=== PATIENT | female | born 1990 | race Two or more races ===

== ENCOUNTER 2024-06-26 09:46 | Outpatient (AMB) | payer OTHER, SELFPAY ==
[2024-06-26 10:05] VITALS: BP 104/68; PULSE 73; RESP 14; TEMP 36.6; O2SAT 98; BMI 23.3
--- NOTE | 2024-06-26 10:05 | OBCLNT_ITS ---
Vital Signs 06/26/24 10:05 Height 1.66 m Height Method Stated Weight 64.637 kg Weight Measurement Method Standing Scale BMI 23.3 BP 104/68 Blood Pressure Source Automatic Cuff Blood Pressure Location Right Upper Arm Position Sitting Respiration 14 Pulse 73 Pulse Source Monitor Temp 97.9 F Temp Source Oral Pulse Oximetry (%) 98 Oxygen Delivery Method Room Air Allergies/Home Meds Allergies & Medications Allergies No Known Allergies Allergy (Verified 06/26/24 10:06) Medication Reconciliation No Known Home Medications 06/26/24 [History Confirmed 06/26/24] Intake Visit Data Collection New Patient or Established: New Patient (never been to [facility]) Reason for Visit:: INITIAL CARE Seen by Clinical Staff ONLY (RN/MA): No 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 1. Little interest or pleasure in doing things: not at all 2. Feeling down, depressed, or hopeless: not at all Total score: 0 PHQ-9 3. Trouble falling or staying asleep, or sleeping too much: Not at all 4. Feeling tired or having little energy: Not at all 5. Poor appetite or overeating: Not at all 6. Feeling bad about yourself - or that you are a failure or have let yourself or your family down: Not at all 7. Trouble concentrating on things, such as reading the newspaper or watching television: Not at all 8. Moving or speaking so slowly that other people could have noticed? - Or the opposite - being so fidgety or restless that you have been moving around a lot more than usual: not at all 9. Thoughts that you would be better off or of hurting yourself in some way: Not at all Total score: 0 Source: Developed by Drs. Franco Patiño, Batsheva Lange, Mega Franklin and colleagues, with an educational antwan from [employer]. Depression screen completed yes Social History Living Situation History Marital Status: Lives With: Family Housing: House Tobacco History Smoking Status: Never smoker Second Hand Smoke Exposure: No Alcohol History Alcohol Intake: Never Domestic Abuse History Do You Feel Safe at Home: Yes Past Medical History Past Medical History Have you ever been diagnosed with any of the following: Genital/Urinary Problems Kidney Stones: Yes (Status post lithotripsy x 2) Reproductive Problems Breast Cancer: No Endometriosis: No Fibroids: No Genital Herpes: No Gonorrhea: No Pelvic Inflammatory Disease: No Polycystic Ovarian Syndrome: No Previous Pregnancies: Yes (Vaginal delivery x 2) Syphilis: No Surgical History Additional Surgical History: History of lithotripsy x 2 History of Present Illness HPI Narrative The patient is a 33-year-old -0-0-2 who presents as a new OB. Of note I delivered her babies at [facility]. She was a patient of mine from [place]. She is actually driving from [place] to see me. 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 Both her babies were born at 41 weeks, she has 2 daughters one is 6 years old and one is 4 years old. The patient stated she pushed a couple hours with her first baby but the second was very fast and I barely made that delivery. She does not do epidurals and she does not like to be induced. Today she reports some nausea and breast tenderness but does not request any medications. She has had lithotripsy in 2013 and 2021. OB Ultrasound Indication Indication: Size, dates, viability OB Ultrasound Ultrasound technique: transvaginal Gestational sac assessment: Presence, location, size, shape: There is a live intrauterine present with a crown length rump length of 3.28 cm corresponding to 10 weeks 1 day and an EDC of 01/20/2025. Cardiac activity is noted at 150 bpm. OB Initial Visit Menstrual History Menstrual reliability: definite Flow: normal Menstrual regularity: regular Monthly: Yes Age at menarche: 12 On control pills at conception: No Associated symptoms (LMP): Denies amenorrhea, nausea, vomiting, fatigue, breast tenderness, urinary frequency, irritability, bloating or other OB History : 3 Para: 2 # of Living Children: 2 Delivery History 1st : Child's name: SORAIDA date: 08/19/18 sex: female Gestational age at delivery (weeks): 41 Delivery type: vaginal Delivery complications: NONE History of depression before or after : No 2nd : Child's name: RICARDO date: 09/27/20 sex: female Gestational age at delivery (weeks): 41 Delivery type: vaginal Delivery complications: NONE History of depression before or after : No Infection History & Risk Evaluation History of STDs: none Genetic Screening & History Genetic Screening/Teratology Counseling - Includes patient, baby's father, or anyone in either family with: 1. Patient's age 35 years or older as of estimated date of delivery: Yes 2. Thalassemia (Sinhala, Hungarian, Mediterranean, or Background); MCV less than 80: No 3. Neural Tube Defect (Meningomyelocele, Spina Bifida, or Anencephaly): No 4. Congenital Heart Defect: No 5. Down Syndrome: No 6. Moises-Sachs (Ashkenazi Hoahaoism, Cajun, Singaporean Thai): No 7. Rosalind Disease (Ashkenazi Hoahaoism): No 8. Familial Dysautonomia (Ashkenazi Hoahaoism): No 9. Sickle Cell Disease or Trait (): No 10. Hemophilia or other blood disorders: No 11. Muscular Dystrophy: No 12. Cystic Fibrosis: No 13. Iroquois's Chorea: No 14. Mental Retardation/Autism: No 15. Other inherited genetic or chromosomal disorder: No 16. Maternal Metabolic Disorder (EG,TYPE 1 Diabetes, PKU): No 17. Patient or baby's father had a child with defects not listed above: No 18. Recurrent loss or a stillbirth: No 19. Medications (including supplements, vitamins, herbs or otc drugs)/illicit/recreational drugs/alcohol since last menstrual period: No 20. Any other: No Infection History 1. Live with someone with TB or exposed to TB: No 2. Rash or viral illness since last menstrual period: No 3. Hepatitis B,C: No Other (see comments) Source: [employer] Review of Systems Constitutional Constitutional: Denies fatigue Gastrointestinal Gastrointestinal: Denies bloating, Denies nausea and Denies vomiting Genitourinary Genitourinary: Denies amenorrhea and Denies urinary frequency Psychiatric Psychiatric: Denies irritability Endocrine Endocrine: Denies fatigue Exam General General Appearance: alert, in no apparent distress, comfortable, cooperative, healthy appearing, well developed and well groomed Neck Neck exam: Present normal inspection, full ROM and trachea midline Chest Chest inspection: Present normal inspection and symmetric chest wall rise Resp Respiratory exam: Present normal lung sounds bilaterally Card Cardiovascular exam: Present regular rate, normal rhythm and normal heart sounds Abdominal Abdominal exam: Present soft and normal bowel sounds External exam: Present normal external exam Bimanual exam: Present normal bimanual exam (Uterus enlarged to 10 weeks size) Extremities Extremities exam: Present normal inspection and full ROM Psych Psychiatric exam: Present normal affect and normal mood Skin Skin exam: Present warm, dry, intact and normal color Office Procedures OB Clinic LOC & Office Proc's Nursing/Assessment Patient Status: Initial/New Patient OB Clinic Nursing Assessment: Medication Reconciliation, Update PMH in EMR and Vital Signs OB Clinic Coordination of Care: Complex Care and Chronic Disease 1-5, Consent,records obtained, informed consent, Education Simp Pt/Fam, Lab and Imaging orders, Results/Orders obtained and Staff clarify orders Special Needs: Heart tones Miscellaneous Interventions: Pelvic/Pap Smear Set up New Patient Charge New Patient Point Assignment: [id number] New Patient Point Charge: PREMIX OPERATOR CONCENTRATE Level 4 ([id number]) In Clinic Procedures Pap Smear: Yes Bedside Ultrasounds US Transvaginal at bedside: Yes Assessment & Plan Diagnosis / Problem List (1) : Status: Acute Qualifiers: Weeks of gestation: 11 weeks Qualified Code(s): Z3A.11 - 11 weeks gestation of Assessment and Plan: labs ordered. Offered NIPT. (2) AMA (advanced maternal age) multigravida 35+: Status: Acute Qualifiers: Trimester: first trimester Qualified Code(s): O09.521 - Supervision of elderly multigravida, first trimester Assessment and Plan: Will authorize for level [address] Thomason in [place]
== END 2024-06-26 10:39 | disposition home or self-care (01) ==
LOC: HODSOBC 09:46
PROVIDERS: Supervising Provider Obstetrics & Gynecology; Visit Provider Obstetrics & Gynecology
DX: O09.521 Supervision of elderly multigravida, first trimester (principal); Z3A.10 10 weeks gestation of pregnancy
CPT/HCPCS: 76817; 81001; 99204; Q0091; G0463

== ENCOUNTER 2024-08-05 09:59 | Outpatient (AMB) | payer OTHER, SELFPAY ==
[2024-08-05 10:19] VITALS: BP 98/63; PULSE 84; RESP 17; TEMP 36.7; O2SAT 97; BMI 23.2
--- NOTE | 2024-08-05 10:19 | OBCLNT_ITS ---
Vital Signs 08/05/24 10:19 Height 1.66 m Height Method Stated Weight 63.957 kg Weight Measurement Method Standing Scale BMI 23.2 BP 98/63 Blood Pressure Source Automatic Cuff Blood Pressure Location Right Upper Arm Position Sitting Respiration 17 Pulse 84 Pulse Source Monitor Temp 98.0 F Temp Source Temporal Artery Scan Pulse Oximetry (%) 97 Oxygen Delivery Method Room Air Allergies/Home Meds Allergies & Medications Allergies No Known Allergies Allergy (Verified 08/05/24 10:20) Medication Reconciliation No Known Home Medications 06/26/24 [History Confirmed 08/05/24] Intake Visit Data Collection New Patient or Established: Established Patient (seen at [facility] within 3 years) Reason for Visit:: OBC Seen by Clinical Staff ONLY (RN/MA): No Real Estate Investor Required: No Do You Feel Safe at Home: Yes Authorities Contacted: N/A PCP or OBGYN visit in last 3 months: Yes Date of Last PCP or OBGYN visit: 06/26/24 Hx Now: Yes Are you currently on any form of Control: No Pain Present Currently: No Pain Scale Used: Bejarano-Nava/Numerical Pain scale:: 0 Smoking Status Smoking Status: Never smoker Questionnaires Covid-19 Vaccine Questionnaire Has patient been vacinated for Covid-19 Have you been vacinated for Covid-19: No PHQ-9 PHQ-2 Over the last 2 weeks, how often have you been bothered by any of the following problems? 1. Little interest or pleasure in doing things: not at all 2. Feeling down, depressed, or hopeless: not at all Total score: 0 PHQ-9 3. Trouble falling or staying asleep, or sleeping too much: Not at all 4. Feeling tired or having little energy: Not at all 5. Poor appetite or overeating: Not at all 6. Feeling bad about yourself - or that you are a failure or have let yourself or your family down: Not at all 7. Trouble concentrating on things, such as reading the newspaper or watching television: Not at all 8. Moving or speaking so slowly that other people could have noticed? - Or the opposite - being so fidgety or restless that you have been moving around a lot more than usual: not at all 9. Thoughts that you would be better off or of hurting yourself in some way: Not at all Total score: 0 If you checked off any problems, how difficult have these problems made it for you to do your work, take care of things at home, or get along with other people?: not difficult at all Source: Developed by Drs. Franco Patiño, Batsheva Lange, Mega Franklin and colleagues, with an educational antwan from [employer]. 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 Care OB Visit Log OB Flowsheet Initial Weight: 62 kg Date -?-?-?-?-?-?-?-?-?-?-?-?- EGA Weight BP Alb Glu CTX Pres Fundal ht FHR Mov Dilation Station Effacement Hx Notes Visit Note 08/05/24 -?-?-?-?-?-?-?-?-?-?-?-?- 15w 5d 63.957 kg (+1956.524 g) 98/63 147 absent No vaginal bleeding no contractions no loss of fluids Has MFM appointm ent for 4 weeks for structural survey. DANIELITO Calculator Estimated Delivery Date Method Current WG Current Estimate 01/22/25 LMP (Certain) 15w 5d Other Estimates 01/21/25 Ultrasound #1 15w 6d Expected Delivery Route/Plan History x 2 desires to go natural Specific Issue/Plans -0-0-2 labs A+\antibody negative\rubella immune\RPR nonreactive\hepatitis B surface antigen negative\HIV negative. Pap smear normal. No urine for gonorrhea and chlamydia available. NIPT 46 XY Lives in [place] Office Procedures OB Clinic LOC & Office Proc's Nursing/Assessment Patient Status: Established Patient OB Clinic Nursing Assessment: Medication Reconciliation, Update PMH in EMR and Vital Signs OB Clinic Coordination of Care: Complex Care and Chronic Disease 1-5, Consent,records obtained, informed consent, Education Simp Pt/Fam and Staff clarify orders Special Needs: Heart tones Established Patient Charge Established Patient Point Assignment: 115 Established Patient Point Charge: EP Level 3 (80-115) Assessment & Plan Diagnosis / Problem List (1) AMA (advanced maternal age) multigravida 35+: Status: Acute Qualifiers: Trimester: second trimester Qualified Code(s): O09.522 - Supervision of elderly multigravida, second trimester Assessment and Plan: NIPT normal has level [address] Thomason (2) : Status: Acute Qualifiers: Weeks of gestation: 15 weeks Qualified Code(s): Z3A.15 - 15 weeks gestation of
== END 2024-08-05 10:59 | disposition home or self-care (01) ==
LOC: HODSOBC 09:59
PROVIDERS: Supervising Provider Obstetrics & Gynecology; Visit Provider Obstetrics & Gynecology
DX: O09.522 Supervision of elderly multigravida, second trimester (principal); Z3A.15 15 weeks gestation of pregnancy
CPT/HCPCS: 99213; G0463

== ENCOUNTER 2024-09-23 10:37 | Outpatient (AMB) | payer OTHER, SELFPAY ==
[2024-09-23 10:55] VITALS: BP 103/64; PULSE 16; RESP 87; TEMP 36.6; O2SAT 98; BMI 24.4
--- NOTE | 2024-09-23 10:55 | AMB.OBVISIT ---
Vital Signs 09/23/24 10:55 Height 1.66 m Height Method Stated Weight 67.302 kg Weight Measurement Method Standing Scale BMI 24.4 BP 103/64 Blood Pressure Source Automatic Cuff Blood Pressure Location Left Upper Arm Position Sitting Respiration 87 H Pulse 16 L Pulse Source Monitor Temp 97.9 F Temp Source Oral Pulse Oximetry (%) 98 Oxygen Delivery Method Room Air Allergies/Home Meds Allergies & Medications Allergies No Known Allergies Allergy (Verified 09/23/24 10:56) Medication Reconciliation No Known Home Medications 06/26/24 [History Confirmed 09/23/24] Intake Visit Data Collection New Patient or Established: Established Patient (seen at [facility] within 3 years) Reason for Visit:: CARE Seen by Clinical Staff ONLY (RN/MA): No Chemical Processing Technician Required: No Do You Feel Safe at Home: Yes Authorities Contacted: N/A PCP or OBGYN visit in last 3 months: Yes Hx Now: Yes Are you currently on any form of Control: No Pain Present Currently: No Pain Scale Used: Bejarano-Nava/Numerical Pain scale:: 0 Smoking Status Smoking Status: Never smoker Questionnaires Covid-19 Vaccine Questionnaire Has patient been vacinated for Covid-19 Have you been vacinated for Covid-19: Yes PHQ-9 PHQ-2 Over the last 2 weeks, how often have you been bothered by any of the following problems? 1. Little interest or pleasure in doing things: not at all 2. Feeling down, depressed, or hopeless: not at all Total score: 0 PHQ-9 3. Trouble falling or staying asleep, or sleeping too much: Not at all 4. Feeling tired or having little energy: Not at all 5. Poor appetite or overeating: Not at all 6. Feeling bad about yourself - or that you are a failure or have let yourself or your family down: Not at all 7. Trouble concentrating on things, such as reading the newspaper or watching television: Not at all 8. Moving or speaking so slowly that other people could have noticed? - Or the opposite - being so fidgety or restless that you have been moving around a lot more than usual: not at all 9. Thoughts that you would be better off or of hurting yourself in some way: Not at all Total score: 0 Source: Developed by Batsheva Koch B.W. Nazario, Mega Franklin and colleagues, with an educational antwan from [employer]. 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 09/23/24 <del>?</del> 22w 5d 67.302 kg (+5301.768 g) 103/64 23 134 active +FM, No UCs or LOF Was on vacation so rescheduled her MFM appointment with Dr. Thomason. Will have this in 2 weeks. DANIELITO Calculator Estimated Delivery Date Method Current WG Current Estimate 01/22/25 LMP (Certain) 22w 5d Other Estimates 01/21/25 Ultrasound #1 22w 6d Expected Delivery Route/Plan History x 2 desires to go natural Specific Issue/Plans -0-0-2 labs A+\antibody negative\rubella immune\RPR nonreactive\hepatitis B surface antigen negative\HIV negative. Pap smear normal. No urine for gonorrhea and chlamydia available. NIPT 46 XY Lives in [place] Notes Visit Date: 09/23/24 Last Updated by: Teresa Casiano (OB Clinic)MD labs: A positive/antibody negative/ rubella immune/RPR nonreactive/ hepatitis B surface antigen negative/HIV negative/hep C negative/NIPT 46 XY Pap normal/ GC chlamydia negative Office Procedures OB Clinic LOC & Office Proc's Nursing/Assessment Patient Status: Established Patient OB Clinic Nursing Assessment: Medication Reconciliation, Update PMH in EMR and Vital Signs OB Clinic Coordination of Care: Complex Care and Chronic Disease 1-5, Consent,records obtained, informed consent, Education Simp Pt/Fam, Lab and Imaging orders, Results/Orders obtained and Staff clarify orders Special Needs: Heart tones Established Patient Charge Established Patient Point Assignment: 135 Established Patient Point Charge: EP Level 4 (120-155)
== END 2024-09-23 11:42 | disposition home or self-care (01) ==
LOC: HODSOBC 10:37
PROVIDERS: Supervising Provider Obstetrics & Gynecology; Visit Provider Obstetrics & Gynecology
DX: O09.522 Supervision of elderly multigravida, second trimester (principal); Z3A.22 22 weeks gestation of pregnancy
CPT/HCPCS: 99214; G0463

== ENCOUNTER 2024-10-28 09:51 | Outpatient (AMB) | payer OTHER, SELFPAY ==
[2024-10-28 10:05] VITALS: BP 102/61; PULSE 82; RESP 16; TEMP 36.2; O2SAT 98; BMI 24.9
--- NOTE | 2024-10-28 10:05 | OBCLNT_ITS ---
Vital Signs 10/28/24 10:05 Height 1.66 m Height Method Stated Weight 68.606 kg Weight Measurement Method Standing Scale BMI 24.9 BP 102/61 Blood Pressure Source Automatic Cuff Blood Pressure Location Left Upper Arm Position Sitting Respiration 16 Pulse 82 Pulse Source Monitor Temp 97.2 F Temp Source Oral Pulse Oximetry (%) 98 Oxygen Delivery Method Room Air Allergies/Home Meds Allergies & Medications Allergies No Known Allergies Allergy (Verified 10/28/24 10:06) Medication Reconciliation No Known Home Medications 06/26/24 [History Confirmed 10/28/24] Intake Visit Data Collection New Patient or Established: Established Patient (seen at [facility]) Reason for Visit:: OBC Seen by Clinical Staff ONLY (RN/MA): No Process Specialist Required: No Do You Feel Safe at Home: Yes Authorities Contacted: N/A PCP or OBGYN visit in last 3 months: Yes Date of Last PCP or OBGYN visit: 09/23/24 Hx Now: Yes Are you currently on any form of Control: No Pain Present Currently: No Pain Scale Used: Bejarano-Nava/Numerical Pain scale:: 0 Smoking Status Smoking Status: Never smoker Questionnaires Covid-19 Vaccine Questionnaire Has patient been vacinated for Covid-19 Have you been vacinated for Covid-19: Yes PHQ-9 PHQ-2 Over the last 2 weeks, how often have you been bothered by any of the following problems? 1. Little interest or pleasure in doing things: not at all 2. Feeling down, depressed, or hopeless: not at all Total score: 0 PHQ-9 3. Trouble falling or staying asleep, or sleeping too much: Not at all 4. Feeling tired or having little energy: Not at all 5. Poor appetite or overeating: Not at all 6. Feeling bad about yourself - or that you are a failure or have let yourself or your family down: Not at all 7. Trouble concentrating on things, such as reading the newspaper or watching television: Not at all 8. Moving or speaking so slowly that other people could have noticed? - Or the opposite - being so fidgety or restless that you have been moving around a lot more than usual: not at all 9. Thoughts that you would be better off or of hurting yourself in some way: Not at all Total score: 0 If you checked off any problems, how difficult have these problems made it for you to do your work, take care of things at home, or get along with other people?: not difficult at all Source: Developed by Drs. Franco Patiño, Batsheva Lange, Mega Franklin and colleagues, with an educational antwan from [employer]. 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 09/23/24 -?-?-?-?-?-?-?-?-?-?-?-?- 22w 5d 67.302 kg (+5301.768 g) 103/64 23 134 active +FM, No UCs or LOF Was on vacation so rescheduled her MFM appointment with Dr. Thomason. Will have this in 2 weeks. 10/28/24 -?-?-?-?-?-?-?-?-?-?-?-?- 27w 5d 68.606 kg (+6605.846 g) 102/61 28 156 active +FM No LOF or UC Ordered GCT at [employer] Calculator Estimated Delivery Date Method Current WG Current Estimate 01/22/25 LMP (Certain) 27w 5d Other Estimates 01/21/25 Ultrasound #1 27w 6d Expected Delivery Route/Plan History x 2 desires to go natural Specific Issue/Plans -0-0-2 labs A+\antibody negative\rubella immune\RPR nonreactive\hepatitis B surface antigen negative\HIV negative. Pap smear normal. No urine for gonorrhea and chlamydia available. NIPT 46 XY Lives in [place] Notes Visit Date: 10/28/24 Last Updated by: Teresa Casiano (OB Clinic)MD Small VSD on US DR Thomason. Normal Level II us. Order GCT Visit Date: 09/23/24 Last Updated by: Teresa Casiano (OB Clinic)MD labs: A positive/antibody negative/ rubella immune/RPR nonreactive/ hepatitis B surface antigen negative/HIV negative/hep C negative/NIPT 46 XY Pap normal/ GC chlamydia negative Office Procedures OB Clinic LOC & Office Proc's Nursing/Assessment Patient Status: Established Patient OB Clinic Nursing Assessment: Medication Reconciliation, Update PMH in EMR and Vital Signs OB Clinic Coordination of Care: Consent,records obtained, informed consent, Education Simp Pt/Fam, Lab and Imaging orders, Results/Orders obtained and Staff clarify orders Special Needs: Heart tones Established Patient Charge Established Patient Point Assignment: 110 Established Patient Point Charge: EP Level 3 (80-115) Assessment & Plan Diagnosis / Problem List (1) AMA (advanced maternal age) multigravida 35+: Status: Acute Qualifiers: Trimester: third trimester Qualified Code(s): O09.523 - Supervision of elderly multigravida, third trimester Plan: Normal NIPT and level [address] Thomason. Normal echo with Dr. Thomason. (2) : Status: Acute Qualifiers: Weeks of gestation: 28 weeks Qualified Code(s): Z3A.28 - 28 weeks gestation of
== END 2024-10-28 10:25 | disposition home or self-care (01) ==
LOC: HODSOBC 09:51
PROVIDERS: Supervising Provider Obstetrics & Gynecology; Visit Provider Obstetrics & Gynecology
DX: O09.522 Supervision of elderly multigravida, second trimester (principal); O09.892 Supervision of other high risk pregnancies, second trimester; O35.BXX0 Maternal care for other (suspected) fetal abnormality and damage, fetal cardiac anomalies, not applicable or unspecified; Z3A.27 27 weeks gestation of pregnancy
CPT/HCPCS: 99213; G0463

== ENCOUNTER 2024-11-25 11:02 | Outpatient (AMB) | payer OTHER, SELFPAY ==
--- NOTE | 2024-11-25 11:18 | OBCLNT_ITS ---
Vital Signs 11/25/24 11:21 Height 1.66 m Height Method Stated Weight 70.307 kg Weight Measurement Method Standing Scale BMI 25.4 BP 102/64 Blood Pressure Source Automatic Cuff Blood Pressure Location Left Upper Arm Position Sitting Respiration 16 Pulse 78 Pulse Source Monitor Temp 98.0 F Temp Source Oral Pulse Oximetry (%) 98 Oxygen Delivery Method Room Air Allergies/Home Meds Allergies & Medications Allergies No Known Allergies Allergy (Verified 10/28/24 10:06) Medication Reconciliation No Known Home Medications 06/26/24 [History Confirmed 11/25/24] Intake Visit Data Collection New Patient or Established: Established Patient (seen at [facility] within 3 years) Reason for Visit:: obc Seen by Clinical Staff ONLY (RN/MA): No Embedded Linux Developer Required: No Do You Feel Safe at Home: Yes Authorities Contacted: N/A PCP or OBGYN visit in last 3 months: Yes Date of Last PCP or OBGYN visit: 10/28/24 Hx Now: Yes Are you currently on any form of Control: No Pain Present Currently: No Pain Scale Used: Bejarano-Nava/Numerical Pain scale:: 0 Smoking Status Smoking Status: Never smoker Questionnaires Covid-19 Vaccine Questionnaire Has patient been vacinated for Covid-19 Have you been vacinated for Covid-19: No PHQ-9 PHQ-2 Over the last 2 weeks, how often have you been bothered by any of the following problems? 1. Little interest or pleasure in doing things: not at all 2. Feeling down, depressed, or hopeless: not at all Total score: 0 PHQ-9 3. Trouble falling or staying asleep, or sleeping too much: Not at all 4. Feeling tired or having little energy: Not at all 5. Poor appetite or overeating: Not at all 6. Feeling bad about yourself - or that you are a failure or have let yourself or your family down: Not at all 7. Trouble concentrating on things, such as reading the newspaper or watching television: Not at all 8. Moving or speaking so slowly that other people could have noticed? - Or the opposite - being so fidgety or restless that you have been moving around a lot more than usual: not at all 9. Thoughts that you would be better off or of hurting yourself in some way: Not at all Total score: 0 If you checked off any problems, how difficult have these problems made it for you to do your work, take care of things at home, or get along with other people?: not difficult at all Source: Developed by Drs. Franco Patiño, Batsheva Lange, Mega Franklin and colleagues, with an educational antwan from [employer]. 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 09/23/24 -?-?-?-?-?-?-?-?-?-?-?-?- 22w 5d 67.302 kg (+5301.768 g) 103/64 23 134 active +FM, No UCs or LOF Was on vacation so rescheduled her MFM appointment with Dr. Thomason. Will have this in 2 weeks. 10/28/24 -?-?-?-?-?-?-?-?-?-?-?-?- 27w 5d 68.606 kg (+6605.846 g) 102/61 28 156 active +FM No LOF or UC [facility] 11/25/24 -?-?-?-?-?-?-?-?-?-?-?-?- 31w 5d 70.307 kg (+8306.817 g) 102/64 32 145 active Good movement. No loss of fluids or bleeding. Normal GCT o f [facility]. Have lab. 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 Pap smear normal. No urine for gonorrhe a and chlamydia available. NIPT 46 XY 1 hour glucose 91 Lives in [facility] Notes Visit Date: 10/28/24 Last Updated by: Teresa Casiano ([facility])MD Small VSD on US DR Thomason. Normal Level II us. Order GCT Visit Date: 09/23/24 Last Updated by: Teresa Casiano ([facility])MD labs: A positive/antibody negative/ rubella immune/RPR nonreactive/ hepatitis B surface antigen negative/HIV negative/hep C negative/NIPT 46 XY Pap normal/ GC chlamydia negative Office Procedures OBC Clinic LOC & Office Proc's Nursing/Assessment Patient Status: Established Patient OB Clinic Nursing Assessment: Medication Reconciliation, Update PMH in EMR and Vital Signs OB Clinic Coordination of Care: Complex Care/Chronic Disease 5 or more, Education Complex Pt/Fam, Results/Orders obtained and Staff clarify orders Special Needs: Heart tones Established Patient Charge Established Patient Point Assignment: 130 Established Patient Point Charge: EP Level 4 (120-155) Assessment & Plan Diagnosis / Problem List (1) AMA (advanced maternal age) multigravida 35+: Status: Acute Qualifiers: Trimester: third trimester Qualified Code(s): O09.523 - Supervision of elderly multigravida, third trimester (2) : Status: Acute Qualifiers: Weeks of gestation: 32 weeks Qualified Code(s): Z3A.32 - 32 weeks gestation of Plan: Follow-up in 2 weeks. Will need group B strep between 35 and 36 weeks. Encourage influenza vaccine Tdap and RSV. Additional Plan Follow Up: 2 Weeks
[2024-11-25 11:21] VITALS: BP 102/64; PULSE 78; RESP 16; TEMP 36.7; O2SAT 98; BMI 25.4
== END 2024-11-25 11:53 | disposition home or self-care (01) ==
LOC: HODSOBC 11:02
PROVIDERS: Supervising Provider Obstetrics & Gynecology; Visit Provider Obstetrics & Gynecology
DX: O09.523 Supervision of elderly multigravida, third trimester (principal); Z3A.31 31 weeks gestation of pregnancy
CPT/HCPCS: 99214; G0463

== ENCOUNTER 2025-01-06 15:28 | Outpatient (AMB) | payer OTHER, SELFPAY ==
[2025-01-06 15:37] VITALS: BP 98/67; PULSE 75; RESP 18; TEMP 36.7; O2SAT 97; BMI 26.6
--- NOTE | 2025-01-06 15:37 | OBCLNT_ITS ---
Vital Signs 01/06/25 15:37 Height 1.66 m Height Method Stated Weight 73.595 kg Weight Measurement Method Standing Scale BMI 26.6 BP 98/67 Blood Pressure Source Automatic Cuff Blood Pressure Location Right Upper Arm Position Sitting Respiration 18 Pulse 75 Pulse Source Monitor Temp 98.1 F Temp Source Temporal Artery Scan Pulse Oximetry (%) 97 Oxygen Delivery Method Room Air Allergies/Home Meds Allergies & Medications Allergies No Known Allergies Allergy (Verified 01/06/25 15:39) Medication Reconciliation No Known Home Medications 06/26/24 [History Confirmed 01/06/25] Immunizations Immunizations Flu Vaccine in the Last 12 Months: No Flu Vaccine Exclusion Criteria: No Exclusion Criteria Care OB Visit Log OB Flowsheet Initial Weight: 62 kg Date -?-?-?-?-?-?-?-?-?-?-?-?- EGA Weight BP Alb Glu CTX Pres Fundal ht FHR Mov Dilation Station Effacement Hx Notes Visit Note 08/05/24 -?-?-?-?-?-?-?-?-?-?-?-?- 15w 5d 63.957 kg (+1956.524 g) 98/63 147 absent No vaginal bleeding no contractions no loss of fluids Has MFM appointm ent for 4 weeks for structural survey. 09/23/24 -?-?-?-?-?-?-?-?-?-?-?-?- 22w 5d 67.302 kg (+5301.768 g) 103/64 23 134 active +FM, No UCs or LOF Was on vacation so rescheduled her MFM appointment with Dr. Thomason. Will have this in 2 weeks. 10/28/24 -?-?-?-?-?-?-?-?-?-?-?-?- 27w 5d 68.606 kg (+6605.846 g) 102/61 28 156 active +FM No LOF or UC [facility] 11[facility]25/24 -?-?-?-?-?-?-?-?-?-?-?-?- 31w 5d 70.307 kg (+8306.817 g) 102/64 32 145 active Good movement. No loss of fluids or bleeding. Normal GCT o f [facility]. Have lab. 01/06/25 -?-?-?-?-?-?-?-?-?-?-?-?- 37w 5d 73.595 kg (+11.595 kg) 98/67 absent cephalic 37 145 acti ve Reports good movem ent. Denies leaking, bleeding, contractions. Patient drives from [place] so she is concerned about the distance. Patient scheduled for induction January 27, 2025 no bed was available for January 26. Discussed labor precautions and kick count. 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 Pap smear normal. No urine for gonorrhea and chlamydia available. NIPT 46 XY 1 hour glucose 91 Lives in [place] AMA Notes Visit Date: 10/28/24 Last Updated by: Teresa Casiano ([facility])MD Small VSD on US DR Thomason. Normal Level II us. Order GCT Visit Date: 09/23/24 Last Updated by: Teresa Casiano ([facility])MD labs: A positive/antibody negative/ rubella immune/RPR nonreactive/ hepatitis B surface antigen negative/HIV negative/hep C negative/NIPT 46 XY Pap normal/ GC chlamydia negative Office Procedures OBC Clinic LOC & Office Proc's Nursing/Assessment Patient Status: Established Patient OB Clinic Nursing Assessment: Medication Reconciliation, Update PMH in EMR and Vital Signs OB Clinic Coordination of Care: Complex Care and Chronic Disease 1-5, Education Complex Pt/Fam, Consent,records obtained, informed consent, Lab and Imaging orders, Results/Orders obtained and Staff clarify orders Special Needs: Heart tones Established Patient Charge Established Patient Point Assignment: 140 Established Patient Point Charge: EP Level 4 (120-155) Assessment & Plan Diagnosis / Problem List (1) AMA (advanced maternal age) multigravida 35+: Status: Acute Qualifiers: Trimester: third trimester Qualified Code(s): O09.523 - Supervision of elderly multigravida, third trimester (2) Encounter for supervision of high risk in third trimester, antepartum: Status: Acute Plan Schedule induction for patient request January 27, 2025. GBS today. Discussed labor precautions and kick count twice a day. Return in a week OB check Additional Plan Follow Up: 1 Week (obc)
== END 2025-01-06 16:09 | disposition home or self-care (01) ==
LOC: HODSOBC 15:28
PROVIDERS: Supervising Provider Advanced Practice Midwife; Visit Provider Advanced Practice Midwife
DX: O09.523 Supervision of elderly multigravida, third trimester (principal); Z3A.37 37 weeks gestation of pregnancy; Z36.85 Encounter for antenatal screening for Streptococcus B
CPT/HCPCS: 99214; G0463

== ENCOUNTER 2025-01-11 09:47 | Outpatient (AMB) | payer OTHER, SELFPAY ==
[2025-01-11 10:10] VITALS: BP 103/66; PULSE 75; RESP 14; TEMP 36.6; O2SAT 97; BMI 26.9
--- NOTE | 2025-01-11 10:10 | OBCLNT_ITS ---
Vital Signs 01/11/25 10:10 Height 1.66 m Height Method Stated Weight 74.106 kg Weight Measurement Method Standing Scale BMI 26.9 BP 103/66 Blood Pressure Source Automatic Cuff Blood Pressure Location Left Upper Arm Position Sitting Respiration 14 Pulse 75 Pulse Source Monitor Temp 97.8 F Temp Source Oral Pulse Oximetry (%) 97 Oxygen Delivery Method Room Air Allergies/Home Meds Allergies & Medications Allergies No Known Allergies Allergy (Verified 01/11/25 10:11) Medication Reconciliation No Known Home Medications 06/26/24 [History Confirmed 01/11/25] Immunizations Immunizations Flu Vaccine in the Last 12 Months: Yes Date of most recent flu vaccination: 12/09/24 Flu Vaccine Exclusion Criteria: Already Received Care OB Visit Log OB Flowsheet Initial Weight: 62 kg Date -?-?-?-?-?-?-?-?-?-?-?-?- EGA Weight BP Alb Glu CTX Pres Fundal ht FHR Mov Dilation Station Effacement Hx Notes Visit Note 08/05/24 -?-?-?-?-?-?-?-?-?-?-?-?- 15w 5d 63.957 kg (+1956.524 g) 98/63 147 absent No vaginal bleeding no contractions no loss of fluids Has MFM appointm ent for 4 weeks for structural survey. 09/23/24 -?-?-?-?-?-?-?-?-?-?-?-?- 22w 5d 67.302 kg (+5301.768 g) 103/64 23 134 active +FM, No UCs or LOF Was on vacation so rescheduled her MFM appointment with Dr. Thomason. Will have this in 2 weeks. 10/28/24 -?-?-?-?-?-?-?-?--?-?-?-?- 27w 5d 68.606 kg (+6605.846 g) 102/61 28 156 active +FM No LOF or UC [facility] 11/25/24 -?-?-?-?-?-?-?-?-?-?-?-?- 31w 5d 70.307 kg (+8306.817 g) 102/64 32 145 active Good movement. No loss of fluids or bleeding. Normal GCT o f [facility]. Have lab. 01/06/25 -?-?-?-?-?-?-?-?-?-?-?-?- 37w 5d 73.595 kg (+11.595 kg) 98/67 absent cephalic 37 145 acti ve Reports good movement. Denies leaking, bleeding, contractions. Patient drives from [place] so she is concerned about the distance. Patient scheduled for induction January 27, 2025 no bed was available for January 26. Discussed labor precautions and kick count. GBS done today 01/11/25 -?-?-?-?-?-?-?-?-?-?-?-?- 38w 3d 74.106 kg (+12.106 kg) 103/66 absent cephalic 37 145 act alejandra Reports good movement. Denies leaking or bleeding. Occasional pressure no other complaints Patient is scheduled for induction in January 27. Reviewed labor precautions and kick count. Increase fluids. 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 Pap smear normal. No urine for gonorrhea and chlamydia available. NIPT 46 XY 1 hour glucose 91 Lives in [place] AMA Notes Visit Date: 01/11/25 Last Updated by: Asiya Mcallister CNM GBS- Visit Date: 10/28/24 Last Updated by: Teresa Casiano ([facility])MD Small VSD on US DR Thomason. Normal Level II us. Order GCT Visit Date: 09/23/24 Last Updated by: Teresa Casiano ([facility])MD labs: A positive/antibody negative/ rubella immune/RPR nonreactive/ hepatitis B surface antigen negative/HIV negative/hep C negative/NIPT 46 XY Pap normal/ GC chlamydia negative Office Procedures OBC Clinic LOC & Office Proc's Nursing/Assessment Patient Status: Established Patient OB Clinic Nursing Assessment: Medication Reconciliation, Update PMH in EMR and Vital Signs OB Clinic Coordination of Care: AMA, Complex Care and Chronic Disease 1-5, Cons ent,records obtained, informed consent, Education Simp Pt/Fam, 1 Ins Authorization, Lab and Imaging orders, Results/Orders obtained and Staff clarify orders Special Needs: Heart tones Established Patient Charge Established Patient Point Assignment: 170 Established Patient Point Charge: EP Level 5 (160-above) Assessment & Plan Diagnosis / Problem List (1) Encounter for supervision of high risk in third trimester, antepartum: Status: Acute Plan Discussed labor precautions. Kick count twice a day. Reviewed GBS. Patient scheduled for induction January 27. Return in a week to recheck Additional Plan Follow Up: 1 Week (obc)
== END 2025-01-11 10:35 | disposition home or self-care (01) ==
PROVIDERS: Supervising Provider Advanced Practice Midwife; Visit Provider Advanced Practice Midwife
DX: O09.523 Supervision of elderly multigravida, third trimester (principal); Z3A.38 38 weeks gestation of pregnancy
CPT/HCPCS: 99215; G0463

== ENCOUNTER 2025-01-28 07:51 | Inpatient (IN) | payer OTHER, SELFPAY ==
[2025-01-28] VITALS (36 sets, daily range): BP systolic 96–120; BP diastolic 50–89; PULSE 69–143; RESP 18–99; TEMP 36.4–36.7; O2SAT 94–100; BMI 27.1
[2025-01-28 09:56] LABS: Basophils # (Auto) 0.1 Thou/mm3 (0.0-0.2); Basophils % (Auto) 1 % (0-2.5); Eosinophils # (Auto) 0.1 Thou/mm3 (0.0-0.5); Eosinophils % (Auto) 1 % (0-10); Hematocrit 36.4 % (36.0-46.0); Hemoglobin 12.4 g/dL (12.0-16.0); Immature Granulocytes Auto 0.18 Thou/mm3 (0.00-0.00); Lymphocytes # (Auto) 3.5 Thou/mm3 (1.0-4.8); Lymphocytes % (Auto) 28 % (10-50); Mean Corpuscular HGB Conc 34.1 g/dl (31.0-37.0); Mean Corpuscular Hemoglobin 30.0 pg (25.0-35.0); Mean Corpuscular Volume 88 fL (80-100); Monocytes # (Auto) 0.8 Thou/mm3 (0.0-0.8); Monocytes % (Auto) 6 % (0-12); Neutrophils # (Auto) 7.9 Thou/mm3 (1.8-7.7); Neutrophils % (Auto) 63 % (37-80); Nucleated Red Blood Cell # 0.00 Thou/mm3 (0.00-0.00); Nucleated Red Blood Cell % 0 /100 WBC (0); Platelet Count 181 Thou/mm3 (140-440); RDW Standard Deviation 42.1 fL (36.4-46.3); Red Blood Count 4.13 Miln/mm3 (4.00-5.20); White Blood Count 12.6 Thou/mm3 (3.6-11.0)
[2025-01-28 10:42] LABS: Syphilis Nonreactive (Nonreactive)
[2025-01-28] MEDS: fentaNYL CIT INJ 50 mCg/ML AMP 2ML 100 MCG IVP (13:10)
[2025-01-28] MEDS: RINGERS LACTATED 1000 ML 1,000 ML 100 ML IV (13:10)
[2025-01-28 14:16] LABS: HIV (1&2) Antibody Rapid Non-Reactive
[2025-01-28] MEDS: MINERAL OIL 30 ML UDC TOP (15:08)
[2025-01-28] MEDS: OXYTOCIN in NS 20 units 20 UNIT/1,000 ML BAG 125 UNIT IV (15:13)
[2025-01-28] MEDS: BENZO/LANO/ALOE (Dermoplast) 60 GM CAN 1 SPRAY TOP (15:27)
[2025-01-28] MEDS: IBUPROFEN TAB 400 MG TABLET 800 MG PO (15:27)
--- NOTE | 2025-01-28 15:30 | ESHP_ITS ---
Documentation for date of: 01/28/25 OB Labor/Induct. HPI History of Present Illness Chief complaint: Active labor : 3 Para: 2 Term pregnancies: 2 pregnancies: 0 Living children: 2 History of Abortions: Spontaneous and Elective: 0 History of Vaginal deliveries: 2 History of sections: No History of : No DANIELITO: 01/22/25 Gestational Age (weeks): 40 Gestational Age (days): 6 History of present illness: The patient is a 34-year-old -0-0-2 with care complicated with Dr. Elvia Vasquez and the [facility] clinic who presented to labor and delivery in active labor 3 cm. She ambulated. She was placed in a room. She progressed to 6 cm. She was AROMed right before delivery at 1451 and went on to deliver shortly thereafter. She progressed without the aid of any Pitocin augmentation and with no epidural. She had 1 dose of fentanyl at approximately 6 cm. History of Present Dating criteria: LMP confirmed by 1st trimester US Adequate Care: Yes Ultrasounds: normal mid trimester US Obstetrical complications: none Medical complications: none Labs Maternal Blood Type: A Pos Labs: Positive: Rubella Titre, Negative: RPR, Hepatitis B, HIV and Group Beta Strep and Unknown: Chlamydia, Gonorrhea, Herpes Type 1, Herpes Type 2 and Covid-19 Past Medical History Surgical History SURGICAL: Negative Section Past Medical History Comments PMH COMMENT: No chronic medical problems. History of x 2 without complications. Meds Home Medications and Allergies Home Medications ?Medication ?Instructions ?Recorded ?Confirmed ?Type No Known Home Medications 06/26/2401/18 History Allergies Allergy/AdvReac Type Severity Reaction Status Date / Time No Known Allergies Allergy Verified 01/28/25 07:52 OB Exam Physical Exam Vital signs: Temp Pulse Resp BP Pulse Ox O2 Del Method 97.6 F 83 18 105/59 L 99 Room Air 01/28/25 12:33 01/28/25 15:29 01/28/25 12:33 01/28/25 15:29 01/28/25 15:12 01/28/25 12:33 Detailed Labor and Delivery Exam Effacement (%): 80 Cervix position: mid station: -2 Consistency: soft Presentation: Vertex Membranes: intact monitor accelerations: 15x15 monitor decelerations: None intermission coordinator variability: Moderate (11-25) Contraction frequency (min): Every 3 to 5 minutes on presentation OB Results Labs 01/28/25 09:20 Labs: Short CBC 01/28/25 Range/Units 09:20 WBC 12.6 H (3.6-11.0) Thou/mm3 Hgb 12.4 (12.0-16.0) g/dL Hct 36.4 (36.0-46.0) % Plt Count 181 (140-440) Thou/mm3 OB Assessment & Plan Assessment and Plan (1) Encounter for supervision of high risk in third trimester, antepartum: Status: Acute Assessment and plan: Admit patient. Pain control as needed. Anticipate . (2) AMA (advanced maternal age) multigravida 35+: Status: Acute Assessment and plan: Status post normal level 2 ultrasound and NIPT Additional Plan Induction method: none Plan: anticipate NVD (2) AMA (advanced maternal age) multigravida 35+ Qualifiers: Trimester: third trimester Qualified Code(s): O09.523 - Supervision of elderly multigravida, third trimester
--- NOTE | 2025-01-28 17:40 | PD.LDDELS ---
Data (Garcia) Data Hx Section: No Maternal Blood Type: A Pos Rubella Titre: Positive RPR: Non-reactive Labs: Negative: RPR, Hepatitis B, HIV and Group Beta Strep and Unknown: Chlamydia and Gonorrhea : 3 Term: 2 : 0 Livin Abortions: Spontaneous & Theraputic: 0 Delivery Data (Garcia) Labor Data Initiation of labor: Spontaneous Induction/Augmentation Agent: None ROM date: 01/28/25 ROM time: 14:51 Amniotic membrane rupture type: Artificial Amniotic fluid description: Clear Delivery Data EDC: 01/22/25 EDC calculated by:: LMP/early US confirmation Date of arrival to unit: 01/28/25 Onset of labor date: 01/28/25 Onset of labor time: 12:55 Complete dilation date: 01/28/25 Complete dilation time: 15:04 delivery date: 01/28/25 [place] delivery time: 15:12 Gestational age (weeks): 40 Gestational age (days): 5 Placenta delivery date: 01/28/25 Placenta delivery time: 15:19 Stage 1 total time: Labor - Stage 1 Duration 2 hours and 9 minutes Delivered by: Stephenie Delivery nurse: [email or web address] [place]orn nurse: [email or web address] Jewelry Sorter at delivery: No Support person(s) at delivery: FOB Delivery Method Delivery method: Normal Vaginal Delivery Presentation: Vertex position: OA Anesthesia Type Anesthesia Type: None Anesthesia type: None Delivery Room Medications Delivery room medications: Pitocin 20 u IV Placenta Placenta delivery description: Spontaneous Cord blood sent to lab: Yes cord blood collection: Cord Blood Type Episiotomy Episiotomy description: None Lacerations #1: Perineal: 1st degree Perineal repair Sutures used for repair: 4.0 Chromic EBL Estimated blood loss (ml): 100 Umbilical Cord cord description: 3 Vessels, Nuchal Cord, Loose, Reduced and Around Body Additional Procedures Patient is a 34-year-old -0-0-2 presented to labor and delivery at 40-5/7 weeks in early labor. She ambulated. She was 3 cm. She rapidly progressed to 6 cm and had fentanyl given. She progressed to 8 to 9 cm et0005 she began getting pushy. She was set up for delivery and pushed through a total of 3-4 contractions delivering a liveborn male at 1519. Findings: Liveborn male in the DALL[place] presentation with a loose nuchal and body cord x 1 no meconium. Apgars were 8 and 9, weight was 7 pounds 8 ounces. As the baby was vigorous at , he was placed directly on his mother's chest and delayed cord clamping was performed for approximately 3 minutes. The cord was then clamped and cut and the stayed on mother's chest. The placenta was complete, spontaneous, and grossly normal delivering within 5 to 7 minutes of the patient delivering. The patient sustained a very small first-degree perineal laceration repaired using 4-0 chromic. Of note ,the patient had no epidural and had only one dose of fentanyl when she was 6 cm. Complications were none. Condition both mom and were in stable condition the delivery room. Complications Complications: None [place] Data (Garcia) [place] Data order: 1 's gender: Male Identification band number: [id number] weight (gms): 3410 g Weight (pounds): 7 lbs and 8.3 ozs length: 54.61 cm 1 minute: 8 5 minutes: 9
[2025-01-28] MEDS: DOCUSATE SOD 100 MG CAPSULE PO (20:23)
[2025-01-29 03:45] VITALS: BP 99/65; PULSE 71; RESP 16; TEMP 36.6; O2SAT 97
[2025-01-29 05:47] LABS: Basophils # (Auto) 0.1 Thou/mm3 (0.0-0.2); Basophils % (Auto) 1 % (0-2.5); Eosinophils # (Auto) 0.2 Thou/mm3 (0.0-0.5); Eosinophils % (Auto) 1 % (0-10); Hematocrit 31.9 % (36.0-46.0); Hemoglobin 10.6 g/dL (12.0-16.0); Immature Granulocytes Auto 0.16 Thou/mm3 (0.00-0.00); Lymphocytes # (Auto) 4.5 Thou/mm3 (1.0-4.8); Lymphocytes % (Auto) 31 % (10-50); Mean Corpuscular HGB Conc 33.2 g/dl (31.0-37.0); Mean Corpuscular Hemoglobin 29.9 pg (25.0-35.0); Mean Corpuscular Volume 90 fL (80-100); Monocytes # (Auto) 0.9 Thou/mm3 (0.0-0.8); Monocytes % (Auto) 6 % (0-12); Neutrophils # (Auto) 9.0 Thou/mm3 (1.8-7.7); Neutrophils % (Auto) 61 % (37-80); Nucleated Red Blood Cell # 0.00 Thou/mm3 (0.00-0.00); Nucleated Red Blood Cell % 0 /100 WBC (0); Platelet Count 170 Thou/mm3 (140-440); RDW Standard Deviation 43.1 fL (36.4-46.3); Red Blood Count 3.55 Miln/mm3 (4.00-5.20); White Blood Count 14.8 Thou/mm3 (3.6-11.0)
[2025-01-29 08:28] VITALS: BP 107/70; PULSE 76; RESP 18; TEMP 36.7; O2SAT 97
--- NOTE | 2025-01-29 08:41 | ESPR_ITS ---
Subjective Subjective Interval history: No complaints of pain. No dizziness. Bonding breast Exam Vital Signs Temp Pulse Resp BP Pulse Ox O2 Del Method 98.0 F 76 18 107/70 97 Room Air 01/29/25 08:28 01/29/25 08:28 01/29/25 08:28 01/29/25 08:28 01/29/25 08:28 01/29/25 08:28 Narrative Exam Vital signs stable afebrile. Breasts are soft. Fundus firm below the mellitus. Perineum intact no swelling. Small lochia. Uterus well involuted. Negative Homans' sign. 2+ DTRs Objective Labs 01/29/25 05:10 Labs: Laboratory Results - last 24 hr 01/28/25 01/29/25 09:20 05:10 WBC 12.6 H 14.8 H RBC 4.13 3.55 L Hgb 12.4 10.6 L Hct 36.4 31.9 L MCV 88 90 MCH 30.0 29.9 MCHC 34.1 33.2 RDW Std Deviation 42.1 43.1 Plt Count 181 170 Neut % (Auto) 63 61 Lymph % (Auto) 28 31 [place] % (Auto) 6 6 Eos % (Auto) 1 1 Baso % (Auto) 1 1 Neut # (Auto) 7.9 H 9.0 H Lymph # (Auto) 3.5 4.5 [place] # (Auto) 0.8 0.9 H Eos # (Auto) 0.1 0.2 Baso # (Auto) 0.1 0.1 Immature Gran # (Auto) 0.18 H 0.16 H Absolute Nucleated RBC 0.00 0.00 Immature Gran % 1 H 1 H Nucleated RBC % 0 0 Syphilis Serology Nonreactive HIV 1&2 Antibody Rapid Non-Reactive Blood Type A Positive Antibody Screen NEGATIVE Blood Bank Wristband ID Yes Assessment & Plan Problem List (1) Encounter for supervision of high risk in third trimester, antepartum: Status: Acute (2) AMA (advanced maternal age) multigravida 35+: Status: Acute Assessment Comment Assessment comment: 24 hr pp Plan Comment Plan Comment: Discharge home with baby. Continue vitamins and iron. Tylenol ibuprofen for pain. Discussed danger signs and symptoms and ER precautions. Sitz bath's twice a day as needed for comfort. Discussed comfort measures for first-degree perineal laceration and we discussed signs and symptoms of infection. Return in 4 weeks visit Time Spent With Patient Time: Total time spent is greater than 50% in coordination of care (as documented) at patient's floor/unit and/or counseling patient:
--- NOTE | 2025-01-29 08:43 | ESDS_ITS ---
DS: Providers Provider Date of admission: 01/28/25 09:07 Primary care physician: Physician No Primary/Family Admitting Provider: Teresa Casiano [facility] ([facility]) Attending Provider on Admission: Asiya Mcallister CNM Attending Provider on DC: Asiya Mcallister CNM Discharging Provider: Asiya Mcallister CNM DS: Diagnosis Problem List Completed Was Problem List Reviewed/Reconciled?: Yes Summary/Hosp Course Brief History: The patient is a 34-year-old -0-0-[address] care [address] with Dr[address] Elvia Vasquez and the [facility] who presented to labor and delivery in active labor 3 cm. She ambulated. She was placed in a room. She progressed to 6 cm. She was AROMed right before delivery at 1451 and went on to deliver shortly thereafter. She progressed without the aid of any Pitocin augmentation and with no epidural. She had 1 dose of fentanyl at approximately 6 cm. Peripartum Data Delivery Method: Normal Vaginal Delivery Episiotomy Description: None Laceration Description: yes (1st perineal) complications: none Time Spent with Patient Time attestation: Total time spent providing and/or coordinating discharge services: Exam Vital Signs Temp Pulse Resp BP Pulse Ox O2 Del Method 98.0 F 76 18 107/70 97 Room Air 01/29/25 08:28 01/29/25 08:28 01/29/25 08:28 01/29/25 08:28 01/29/25 08:28 01/29/25 08:28 Discharge Plan Plan Patient Disposition: HOME (Self Care) Patient condition on transfer: Stable Prescriptions/Referrals Prescriptions/Med Rec: No Action No Known Home Medications Referrals: No Primary/Family,Physician [Primary Care Provider] Patient/Caregiver Discharge Instructions Meds to Beds: No Discharge Activity: resume usual activities Print Language: Algerian Activity Restrictions/Additional Instructions: Discharge home with baby. Continue vitamins. Discussed comfort measures for first-degree perineal laceration. Discussed ER precautions for signs and symptoms of infection. Patient can take Tylenol ibuprofen for pain. And return in 4 to 6 weeks for visit Stand Alone Forms: [facility] Award Info., Patient Portal Info Letter Discharge Order Discharge Orders: Discharge (Routine); Ordered 01/29/25 Ordered By: Asiya Mcallister Planned Discharge Date 01/29/25
[2025-01-29 12:24] VITALS: BP 100/63; PULSE 79; RESP 18; TEMP 36.7; O2SAT 98
== END 2025-01-29 16:30 | disposition home or self-care (01) | DRG 807 ==
LOC: S4SX 16:04 → S4NX 18:21
PROVIDERS: Admitting Provider Obstetrics & Gynecology; Visit Provider Advanced Practice Midwife
DX: O48.0 Post-term pregnancy (principal); Z37.0 Single live birth; O70.0 First degree perineal laceration during delivery; Z3A.40 40 weeks gestation of pregnancy; O69.82X0 Labor and delivery complicated by other cord entanglement, without compression, not applicable or unspecified; O69.81X0 Labor and delivery complicated by cord around neck, without compression, not applicable or unspecified
CPT/HCPCS: 36415; 59025; 85025; 86703; 86780; 86850; 86900; 86901; 87491; 87591; 87661; J2590; J3010; J7120; A9270